=== PATIENT | female | born 1975 | race Caucasian/White ===

== ENCOUNTER 2020-05-15 17:03 | Emergency (ER) | payer MEDICAID, SELFPAY ==
[2020-05-15 17:04] VITALS: BP 157/74; PULSE 94; RESP 18; TEMP 36.9; O2SAT 94; BMI 37.0
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
[2020-05-15 17:52] VITALS: O2SAT 98
[2020-05-15 18:47] VITALS: BP 146/75; PULSE 90; RESP 15; O2SAT 98
== END 2020-05-15 18:47 | disposition home or self-care (01) ==
PROVIDERS: Emergency Provider Emergency Medicine; PCP Radiologic Technologist Bone Densitometry
DX: S60.221A Contusion of right hand, initial encounter (principal); S50.11XA Contusion of right forearm, initial encounter; Z87.891 Personal history of nicotine dependence; V43.62XA Car passenger injured in collision with other type car in traffic accident, initial encounter; Y93.I9 Activity, other involving external motion; Y92.410 Unspecified street and highway as the place of occurrence of the external cause; Y99.8 Other external cause status
CPT/HCPCS: 73090; 73130; 99284